=== PATIENT | male | born 1985 | race American Indian/Alaskan Native ===

== ENCOUNTER 2021-01-21 11:48 | Emergency (ER) | payer OTHER ==
--- NOTE | 2021-01-21 13:13 | EDM.PDOC ---
ED HPI GENERAL MEDICAL PROBLEM - General Chief Complaint: Lower Extremity Injury/Pain Stated Complaint: HURT LT KNEE PLAYING BASKETBALL, BROKEN TOOTH Time Seen by Provider: 01/21/21 12:55 Source of Information: Reports: Patient, RN, RN Notes Reviewed History Limitations: Reports: No Limitations - History of Present Illness INITIAL COMMENTS - FREE TEXT/NARRATIVE: First complaint patient has broken tooth lower left. He was chewing on ice and spit out part of his tooth. He is interested in pain medication for this until he can see a dentist. He has already called in for this and was told to see a dentist. Second complaint today he was playing basketball for other persons. He was reaching for the ball as well as a second individual when he came down on his hyperextended knee causing knee pain above the kneecap and laterally. Slight swelling and warmth. He has not taken anything for this. He is looking for some pain medicine as well until it feels better. Patient is from [place] and does not live around here or is not close to his provider in [place]. Onset: Today Onset Time: 10:00 Duration: Minutes: Location: Reports: Lower Extremity, Left Quality: Reports: Ache (Tooth pain), Sharp (Left knee after playing basketball) Improves with: Reports: None Worsens with: Reports: None (Visit is inappropriate to tell the patient to [facility] the piece of his tooth that is off if not appropriate or otherwise follow-up) Associated Symptoms: Reports: No Other Symptoms ( we had a discussion and he said well I should have done this less sugar than this and the need for these first words out of his mouth are pain pills and there is not a lot of swelling at the tooth or anything like that does not look infected I am sure it hurts because the dermis exposed) 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 Nothing for knee.) - Related Data Allergies Allergy/AdvReac Type Severity Reaction Status Date / Time No Known Allergies Allergy Verified 01/21/21 12:05 Home Meds: Home Meds Dextroamphetamine/Amphetamine [Adderall 30 mg Tablet] 40 mg PO TID 01/21/21 [History] traZODone 100 mg PO BEDTIME 01/21/21 [History] Past Medical History Musculoskeletal History: Reports: None Psychiatric History: Reports: ADHD, Anxiety Endocrine/Metabolic History: Reports: Obesity/BMI 30+ - Infectious Disease History Infectious Disease History: Reports: Chicken Pox, Novel Coronavirus - Past Surgical History Head Surgeries/Procedures: Reports: None Endocrine Surgical History: Reports: None Musculoskeletal Surgical History: Reports: Other (See Below) Other Musculoskeletal Surgeries/Procedures:: right ankle Dermatological Surgical History: Reports: None Social & Family History - Tobacco Use Tobacco Use Status *Q: Never Tobacco User Second Hand Smoke Exposure: No - Caffeine Use Caffeine Use: Reports: Soda - Recreational Drug Use Recreational Drug Use: No Review of Systems - Review of Systems Review Of Systems: See Below Constitutional: Reports: No Symptoms Mouth/Throat: Reports: Pain (Left lower tooth pain from broken tooth) Respiratory: Reports: No Symptoms Cardiovascular: Reports: No Symptoms GI/Abdominal: Reports: No Symptoms Musculoskeletal: Reports: Joint Pain (Left knee), Joint Swelling (Minimal left knee above kneecap) Skin: Reports: No Symptoms Neurological: Reports: No Symptoms Psychiatric: Reports: No Symptoms ED EXAM, GENERAL - Physical Exam Exam: See Below Exam Limited By: No Limitations General Appearance: Alert, WD/WN, No Apparent Distress Throat/Mouth: Normal Gums, Normal Oropharynx, Normal Voice, No Airway Compromise. No: Normal Teeth (Broken bottom for back tooth) Head: Atraumatic, Normocephalic Neck: Normal Inspection, Supple, Non-Tender Respiratory/Chest: No Respiratory Distress, Lungs Clear, Normal Breath Sounds Cardiovascular: Normal Peripheral Pulses, Regular Rate, Rhythm, No Edema Peripheral Pulses: 2+: Popliteal (L), Dorsalis Pedis (L) Extremities: Joint Swelling (Minimal left knee), Increased Warmth (Slight warmth above left kneecap). No: Limited Range of Motion Neurological: Alert, Oriented, CN II-XII Intact Psychiatric: Normal Affect, Normal Mood Skin Exam: Warm, Dry, Intact, Normal Color, No Rash Course - Vital Signs Last Recorded V/S: Last Vital Signs Temp 36.6 C 01/21/21 12:08 Pulse 61 01/21/21 12:08 Resp 18 01/21/21 12:08 BP 137/78 01/21/21 12:08 Pulse Ox 96 01/21/21 12:08 - Orders/Labs/Meds Orders: Active Orders 24 hr Category Date Time Status Knee 3V Lt [CR] Stat Exams 01/21/21 13:05 Taken - Radiology Interpretation Free Text/Narrative:: Right knee without signs of dislocation fracture or malalignment. Normal knee x-ray - Re-Assessments/Exams Free Text/Narrative Re-Assessment/Exam: 01/21/21 14:10 Return to discuss x-rays with patient. Patient left without receiving results of his x-ray. Departure - Departure Time of Disposition: 14:05 Disposition: Eloped 07 Condition: Good Clinical Impression: Fracture, tooth - Discharge Information *PRESCRIPTION DRUG MONITORING PROGRAM REVIEWED*: Not Applicable *COPY OF PRESCRIPTION DRUG MONITORING REPORT IN PATIENT ADELA: Not Applicable Instructions: Knee Sprain, Adult, [id number], Tooth Injuries, [id number] Referrals: PCP,None [Primary Care Provider] - Forms: ED Department Discharge Additional Instructions: Patient left prior to receiving results. Results confirm no fracture or malalignment or dislocation of the knee. Patient did come in with a broken part of his tooth on the left lower back. Patient prior to departure had been instructed to use to cement until he can return to his dentist. Sepsis Event Note (ED) - Evaluation Sepsis Screening Result: No Definite Risk - Focused Exam Vital Signs: Vital Signs Temp Pulse Resp BP Pulse Ox 01/21/21 12:08 36.6 C 61 18 137/78 96 01/21/21 12:07 36.6 C 61 18 137/78 96 - My Orders Last 24 Hours: My Active Orders 01/21/21 13:05 Knee 3V Lt [CR] Stat - Assessment/Plan Last 24 Hours: My Active Orders 01/21/21 13:05 Knee 3V Lt [CR] Stat
--- NOTE | 2021-01-22 13:17 | CR ---
Knee 3V Lt CLINICAL HISTORY: Injury FINDINGS: No acute fracture or dislocation is noted. There are no osseous lesions. Articular surfaces are smooth. There is some mild suprapatellar fullness which may represent joint effusion. Impression: No acute osseous abnormality Possible small effusion
== END 2021-01-21 14:00 | disposition left against medical advice (07) ==
LOC: JP.ED 11:48
DX: S02.5XXA Fracture of tooth (traumatic), initial encounter for closed fracture (principal); E66.9 Obesity, unspecified; Z68.42 Body mass index [BMI] 45.0-49.9, adult; Z86.16 Personal history of COVID-19; W26.8XXA Contact with other sharp object(s), not elsewhere classified, initial encounter
CPT/HCPCS: 73562-26-LT; 73562-LT; 99282; 99283-25